=== PATIENT | female | born 1945 | race Caucasian/White ===

== ENCOUNTER 2022-08-07 20:25 | Emergency (ER) | payer MEDICARE ==
[~2022-08-07] VITALS: Ht 162.6 cm; Wt 81.7 kg
[2022-08-07 21:08] LABS: Base Excess Venous 0.2 mmol/L; Bicarbonate Venous 23.5 mmol/L (24.0-30.0); PCO2 Venous 44.3 mmHg (38-42); pH Blood Venous 7.37 (7.34-7.37)
[2022-08-07 21:31] LABS: BASOPHILS ABSOLUTE AUTO 0.05 K/mm3 (0.00-0.23); BASOPHILS PERCENT AUTO 0 % (0-2); EOSINOPHILS ABSOLUTE AUTO 0.17 K/mm3 (0.00-0.68); EOSINOPHILS PERCENT AUTO 1 % (0-6); Hematocrit 43.1 % (33.0-51.0); Hemoglobin 14.7 g/dL (11.5-16.0); IMMATURE GRAN ABSOLUTE AUTO 0.04 K/mm3 (0.00-0.10); IMMATURE GRAN PERCENT AUTO 0 % (0-1); LYMPHOCYTES ABSOLUTE AUTO 3.09 K/mm3 (0.84-5.20); LYMPHOCYTES PERCENT AUTO 26 % (21-46); MONOCYTES ABSOLUTE AUTO 0.88 K/mm3 (0.16-1.47); MONOCYTES PERCENT AUTO 7 % (4-13); Mean Corpuscular HGB 30.8 pg (26.0-34.0); Mean Corpuscular HGB Conc 34.1 g/dL (31.5-36.5); Mean Corpuscular Volume 90 fL (80-100); NEUTROPHILS ABSOLUTE AUTO 7.67 K/mm3 (1.96-9.15); NEUTROPHILS PERCENT AUTO 65 % (41-73); Platelet Count 225 K/mm3 (150-400); RDW Coefficient Variation 12.7 % (11.7-14.2); RDW Standard Deviation 42.1 fL (35.1-46.3); Red Blood Cell Count 4.78 M/mm3 (3.80-5.20)
[2022-08-07 21:37] LABS: Albumin, Blood 3.1 g/dL (3.4-5.0); Albumin/Globulin Ratio 0.8 (0.8-1.8); Bilirubin, Total 0.5 mg/dL (0.1-1.0); Bun/Creatinine Ratio 23.9 (12.0-20.0); Calcium, Blood 9.8 mg/dL (8.5-10.1); Creatinine, Blood 0.63 mg/dL (0.40-1.00); Globulin, Blood 4.1 g/dL (2.2-4.0); Potassium, Blood 3.7 mmol/L (3.5-5.5); Total Protein, Blood 7.2 g/dL (6.4-8.2)
[2022-08-07 21:46] LABS: Source, Urine Clean Catch
[2022-08-07 21:48] LABS: Bilirubin, Urine Neg (Neg); Blood, Urine 3+ (Neg); Glucose Qualitative, Urine 4+ (Neg); Ketones, Urine 3+ (Neg); Leukocyte Esterase, Urine 3+ (Neg); Nitrite, Urine Neg (Neg); Protein, Urine Neg (Neg); Specific Gravity, Urine 1.015 (1.003-1.022); Urobilinogen, Urine NORM (Normal)
[2022-08-07 21:59] LABS: Appearance, Urine Hazy (Clear); Color, Urine Pale Yellow (P-Yellow)
[2022-08-07 22:00] LABS: Bacteria Few /hpf; Red Blood Cells, Urine 0-2 /hpf (0-2); Squamous Epithelial Cells Rare /hpf (Few); Yeast/Fungi Urine Few /hpf
== END 2022-08-08 03:36 | disposition left against medical advice (07) ==
LOC: ER 20:25
PROVIDERS: Student in an Organized Health Care Education/Training Program
DX: E11.65 Type 2 diabetes mellitus with hyperglycemia (principal); L53.9 Erythematous condition, unspecified; F32.A Depression, unspecified; E03.9 Hypothyroidism, unspecified; Z79.4 Long term (current) use of insulin; Z79.01 Long term (current) use of anticoagulants; Z79.890 Hormone replacement therapy; Z53.21 Procedure and treatment not carried out due to patient leaving prior to being seen by health care provider
CPT/HCPCS: 80053; 81001; 82803; 82947; 85025; 87086; 87147; 93005; 93010; 99283-25

== ENCOUNTER → 2022-09-02 | Outpatient (CLI) | payer MEDICARE | END | disposition home or self-care (01) | LOC: LAB SHORT 13:11 → LAB 13:11 | DX: R31.9 Hematuria, unspecified (principal) | CPT/HCPCS: 87086 ==

== ENCOUNTER → 2022-10-27 | Outpatient (CLI) | payer MEDICARE ==
[~2022-10-27] MED LIST: ADMELOG SO100 UNIT/2 SC; AMITRIPTYLINE H25 MG PO; DONEPEZIL HCL5 M2 PO; ELIQUIS5 M3 PO; FLUO10 PO; JARDIANCE25 MG PO; METO25 PO; NYSTOP15 GM TOP; ROSUVASTATIN CA20 MG PO; SPIRONOLACTONE25 MG PO
== END ==
LOC: LAB SHORT 10:40
DX: R30.0 Dysuria (principal)
CPT/HCPCS: 87086; 87147

== ENCOUNTER 2023-06-20 20:31 | Emergency (ER) | payer MEDICARE, OTHER ==
[~2023-06-20] VITALS: Ht 162.6 cm; Wt 86.2 kg
[2023-06-20 20:38] VITALS: BP 133/85
== END 2023-06-20 21:50 ==
LOC: ER 20:31
DX: E11.65 Type 2 diabetes mellitus with hyperglycemia (principal); I48.91 Unspecified atrial fibrillation; Z79.4 Long term (current) use of insulin
CPT/HCPCS: 82947; 99283; J1815

== ENCOUNTER 2023-10-28 14:39 | Emergency (ER) | payer MEDICARE, OTHER ==
[~2023-10-28] VITALS: Ht 165.1 cm; Wt 72.6 kg
[2023-10-28 15:50] LABS: Source, Urine Clean Catch
[2023-10-28 15:57] LABS: Appearance, Urine Clear (Clear); Bilirubin, Urine Neg (Neg); Blood, Urine Neg (Neg); Glucose Qualitative, Urine 4+ (Neg); Ketones, Urine Neg (Neg); Leukocyte Esterase, Urine Neg (Neg); Nitrite, Urine Neg (Neg); Protein, Urine Neg (Neg); Specific Gravity, Urine 1.015 (1.003-1.022); Urobilinogen, Urine NORM (Normal)
[2023-10-28 16:08] LABS: Color, Urine Pale Yellow (P-Yellow)
[2023-10-28 16:17] LABS: BASOPHILS ABSOLUTE AUTO 0.04 K/mm3 (0.00-0.23); BASOPHILS PERCENT AUTO 0 % (0-2); EOSINOPHILS ABSOLUTE AUTO 1.13 K/mm3 (0.00-0.68); EOSINOPHILS PERCENT AUTO 11 % (0-6); Hematocrit 44.2 % (33.0-51.0); Hemoglobin 14.1 g/dL (11.5-16.0); IMMATURE GRAN ABSOLUTE AUTO 0.03 K/mm3 (0.00-0.10); IMMATURE GRAN PERCENT AUTO 0 % (0-1); LYMPHOCYTES ABSOLUTE AUTO 3.26 K/mm3 (0.84-5.20); LYMPHOCYTES PERCENT AUTO 30 % (21-46); MONOCYTES ABSOLUTE AUTO 0.81 K/mm3 (0.16-1.47); MONOCYTES PERCENT AUTO 8 % (4-13); Mean Corpuscular HGB 27.6 pg (26.0-34.0); Mean Corpuscular HGB Conc 31.9 g/dL (31.5-36.5); Mean Corpuscular Volume 87 fL (80-100); Mean Platelet Volume 9.4 fL (9.1-12.4); NEUTROPHILS ABSOLUTE AUTO 5.52 K/mm3 (1.96-9.15); NEUTROPHILS PERCENT AUTO 51 % (41-73); Platelet Count 205 K/mm3 (150-400); RDW Coefficient Variation 14.1 % (11.7-14.2); White Blood Cell Count 10.79 K/mm3 (4.00-11.30)
[2023-10-28 16:39] LABS: Albumin, Blood 3.2 g/dL (3.4-5.0); Albumin/Globulin Ratio 0.8 (0.8-1.8); Bilirubin, Total 0.4 mg/dL (0.1-1.0); Bun/Creatinine Ratio 23.4 (12.0-20.0); Calcium, Blood 9.8 mg/dL (8.5-10.1); Creatinine, Blood 0.47 mg/dL (0.40-1.00); Globulin, Blood 4.1 g/dL (2.2-4.0); Potassium, Blood 4.7 mmol/L (3.5-5.5); Total Protein, Blood 7.3 g/dL (6.4-8.2)
[2023-10-28] MEDS ORDERED: Percocet 5-3251 EACH PO (17:29)
[2023-10-28 18:00] VITALS: BP 141/57
== END 2023-10-28 18:01 | disposition home or self-care (01) ==
LOC: ER 14:39
PROVIDERS: Physician Assistant; Student in an Organized Health Care Education/Training Program
DX: M25.551 Pain in right hip (principal); Z79.899 Other long term (current) drug therapy; Z79.4 Long term (current) use of insulin; E11.9 Type 2 diabetes mellitus without complications; E03.9 Hypothyroidism, unspecified; I48.91 Unspecified atrial fibrillation
CPT/HCPCS: 74177; 80053; 81003; 85025; 99284-25; A9270; Q9967

== ENCOUNTER 2023-12-12 10:21 | Emergency (ER) | payer MEDICARE, OTHER ==
[~2023-12-12] VITALS: Ht 167.6 cm; Wt 83.9 kg
[~2023-12-12 10:21] MED LIST changes: +Percocet 5-3251 EACH PO
[2023-12-12] MEDS ORDERED: DONE5 PO (10:32)
[2023-12-12] MEDS ORDERED: AMIT25 PO (10:32)
[2023-12-12] MEDS ORDERED: Prozac40 MG PO (10:33)
[2023-12-12] MEDS ORDERED: ELIQUIS5 M2 PO (10:33)
[2023-12-12] MEDS ORDERED: METO50 PO (10:34)
[2023-12-12] MEDS ORDERED: Synthroid200 MCG PO (10:34)
[2023-12-12] MEDS ORDERED: SPIR25 PO (10:34)
[2023-12-12] MEDS ORDERED: Crestor20 MG PO (10:34)
[2023-12-12] MEDS ORDERED: TRULICITY1.5 MG/0.1 SQ (10:35)
[2023-12-12 12:28] VITALS: BP 113/59
== END 2023-12-12 12:28 | disposition home or self-care (01) ==
LOC: ER 10:21
DX: U07.1 COVID-19 (principal); M25.562 Pain in left knee; W18.30XA Fall on same level, unspecified, initial encounter; F03.90 Unspecified dementia, unspecified severity, without behavioral disturbance, psychotic disturbance, mood disturbance, and anxiety; E11.9 Type 2 diabetes mellitus without complications; E03.9 Hypothyroidism, unspecified; I48.91 Unspecified atrial fibrillation; Z79.899 Other long term (current) drug therapy; Z79.01 Long term (current) use of anticoagulants; Z79.890 Hormone replacement therapy
CPT/HCPCS: 99284

== ENCOUNTER → 2024-02-02 | Outpatient (CLI) | payer MEDICARE, OTHER ==
[~2024-02-02] MED LIST changes: +AMIT25 PO; +Crestor20 MG PO; +DONE5 PO; +ELIQUIS5 M2 PO; +METO50 PO; +Prozac40 MG PO; +SPIR25 PO; +Synthroid200 MCG PO; +TRULICITY1.5 MG/0.1 SQ
[2024-02-02 12:28] LABS: Alanine Aminotransfer (ALT/SGP 49 U/L (12-78); Albumin, Blood 3.1 g/dL (3.4-5.0); Albumin/Globulin Ratio 0.8 (0.8-1.8); Alk Phos 137 U/L (50-136); Anion Gap 5 mmol/L (3-11); Aspartate Aminotrans (AST/SGOT 32 U/L (12-37); Bilirubin, Total 0.3 mg/dL (0.1-1.0); Blood Urea Nitrogen 9 mg/dL (8-24); Bun/Creatinine Ratio 16.8 (12.0-20.0); CO2, Blood 32 mmol/L (21-32); Calcium, Blood 9.4 mg/dL (8.5-10.1); Chloride, Blood 105 mmol/L (98-108); Creatinine, Blood 0.54 mg/dL (0.40-1.00); Glomerular Filtration Rate 94 (60-); Glucose, Blood 142 mg/dL (70-99); Potassium, Blood 3.9 mmol/L (3.5-5.5); Sodium, Blood 138 mmol/L (136-145); Thyroid Stimulating Hormone <0.005 uIU/mL (0.360-4.800); Total Protein, Blood 7.1 g/dL (6.4-8.2)
== END ==
LOC: LAB SHORT 07:01 → LAB 07:01
PROVIDERS: Internal Medicine Endocrinology, Diabetes & Metabolism
DX: E03.9 Hypothyroidism, unspecified (principal); E11.65 Type 2 diabetes mellitus with hyperglycemia
CPT/HCPCS: 80053; 83036; 84443

== ENCOUNTER → 2024-04-03 | Outpatient (CLI) | payer MEDICARE, OTHER ==
[~2024-04-03] MED LIST changes: +Atarax10 MG PO; +Naprosyn500 MG PO; +Ultram50 MG PO
[2024-04-03 13:40] LABS: Source, Urine Clean Catch
[2024-04-03 15:13] LABS: Appearance, Urine Cloudy (Clear); Bilirubin, Urine Neg (Neg); Blood, Urine 2+ (Neg); Color, Urine Yellow (P-Yellow); Glucose Qualitative, Urine 4+ (Neg); Ketones, Urine Neg (Neg); Leukocyte Esterase, Urine 3+ (Neg); Nitrite, Urine Neg (Neg); Protein, Urine Neg (Neg); Urobilinogen, Urine NORM (Normal)
[2024-04-03 15:28] LABS: Bacteria Mod /hpf; Squamous Epithelial Cells Few /hpf (Few); Transitional Epithelial Cells Few /hpf (0-Rare); White Blood Cells, Urine TNTC /hpf (0-5)
== END ==
LOC: LAB 13:38 → LAB SHORT 13:38
PROVIDERS: Family Medicine
DX: N39.0 Urinary tract infection, site not specified (principal)
CPT/HCPCS: 81001; 87086; 87147

== ENCOUNTER → 2024-04-11 | Outpatient (CLI) | payer MEDICARE, OTHER | END | disposition home or self-care (01) | LOC: LAB 15:31 → LAB SHORT 15:31 | DX: N39.0 Urinary tract infection, site not specified (principal) | CPT/HCPCS: 87086 ==

== ENCOUNTER 2024-05-03 18:34 | Emergency (ER) | payer MEDICARE, OTHER ==
[~2024-05-03] VITALS: Ht 162.6 cm; Wt 89.8 kg
[2024-05-03 18:40] VITALS: BP 118/77
[2024-05-03] MEDS ORDERED: Insulin Lisp Protam 75/Lisp 25 100 Unit/ML 3ML Pen SC ONE (19:20)
== END 2024-05-03 23:00 | disposition home or self-care (01) ==
LOC: ER 18:34
DX: Z76.0 Encounter for issue of repeat prescription (principal); E03.9 Hypothyroidism, unspecified; E11.9 Type 2 diabetes mellitus without complications; I48.91 Unspecified atrial fibrillation; Z79.899 Other long term (current) drug therapy; Z79.4 Long term (current) use of insulin
CPT/HCPCS: 82947; 99282; J1815

== ENCOUNTER 2024-12-02 03:16 | Observation (INO) | payer MEDICARE, OTHER ==
[~2024-12-02] VITALS: Ht 162.6 cm; Wt 98.0 kg
[2024-12-02] MEDS ORDERED: FentaNYL Citrate 50 MCG/ML 2 ML Injection IV ONE (03:25)
[2024-12-02] MEDS ORDERED: Ondansetron HCl 2 MG / ML 2ML Vial IV ONE (03:30)
[2024-12-02 03:35] LABS: BASOPHILS ABSOLUTE AUTO 0.03 K/mm3 (0.00-0.23); BASOPHILS PERCENT AUTO 0 % (0-2); EOSINOPHILS ABSOLUTE AUTO 0.43 K/mm3 (0.00-0.68); EOSINOPHILS PERCENT AUTO 6 % (0-6); Hematocrit 40.4 % (33.0-51.0); IMMATURE GRAN ABSOLUTE AUTO 0.02 K/mm3 (0.00-0.10); IMMATURE GRAN PERCENT AUTO 0 % (0-1); LYMPHOCYTES ABSOLUTE AUTO 2.53 K/mm3 (0.84-5.20); LYMPHOCYTES PERCENT AUTO 32 % (21-46); MONOCYTES ABSOLUTE AUTO 0.77 K/mm3 (0.16-1.47); MONOCYTES PERCENT AUTO 10 % (4-13); Mean Corpuscular HGB 28.4 pg (26.0-34.0); Mean Corpuscular HGB Conc 32.2 g/dL (31.5-36.5); Mean Corpuscular Volume 88 fL (80-100); Mean Platelet Volume 9.4 fL (9.1-12.4); NEUTROPHILS PERCENT AUTO 52 % (41-73); Platelet Count 172 K/mm3 (150-400); RDW Coefficient Variation 14.2 % (11.7-14.2); RDW Standard Deviation 45.6 fL (35.1-46.3); Red Blood Cell Count 4.58 M/mm3 (3.80-5.20); White Blood Cell Count 7.88 K/mm3 (4.00-11.30)
[2024-12-02 03:47] LABS: Source, Urine Clean Catch
[2024-12-02] MEDS ORDERED: INSULIN LI100 UNIT/7 SC ×2 (03:50→18:01)
[2024-12-02] MEDS ORDERED: TRULICITY1.5 MG/0.1 SQ (03:53)
[2024-12-02] MEDS ORDERED: ACET500 PO (03:54)
[2024-12-02] MEDS ORDERED: HYDR1TAB94 PO (03:55)
[2024-12-02] MEDS ORDERED: BISA10S PR (03:55)
[2024-12-02] MEDS ORDERED: DULCOLAX400 MG/5 M PO (03:56)
[2024-12-02] MEDS ORDERED: LOPE2C (03:56)
[2024-12-02 03:59] LABS: Albumin, Blood 2.7 g/dL (3.4-5.0); Albumin/Globulin Ratio 0.7 (0.8-1.8); Bilirubin, Total 0.3 mg/dL (0.1-1.0); Bun/Creatinine Ratio 11.8 (12.0-20.0); Calcium, Blood 9.4 mg/dL (8.5-10.1); Creatinine, Blood 0.68 mg/dL (0.40-1.00); Globulin, Blood 3.7 g/dL (2.2-4.0); Potassium, Blood 3.6 mmol/L (3.5-5.5); Total Protein, Blood 6.4 g/dL (6.4-8.2)
[2024-12-02 04:03] LABS: Bilirubin, Urine Neg (Neg); Blood, Urine Neg (Neg); Glucose Qualitative, Urine 4+ (Neg); Ketones, Urine Neg (Neg); Leukocyte Esterase, Urine 1+ (Neg); Nitrite, Urine Neg (Neg); Protein, Urine Neg (Neg); Urobilinogen, Urine NORM (Normal)
[2024-12-02 04:28] LABS: Appearance, Urine Hazy (Clear); Color, Urine Pale Yellow (P-Yellow)
[2024-12-02 04:29] LABS: Bacteria Mod /hpf; Red Blood Cells, Urine 0-2 /hpf (0-2); Squamous Epithelial Cells Mod /hpf (Few)
[2024-12-02] MEDS ORDERED: NS 1,000 ML IV SCH (06:15)
[2024-12-02] MEDS ORDERED: MetroNIDAZOLE 500MG/NS 100 ml 100 ML IV ONE (06:15)
[2024-12-02] MEDS ORDERED: CefTRIAXone Sodium 1,000 MG in NS 100 ML IV ONE (06:15)
[2024-12-02] MEDS ORDERED: Ondansetron HCl 2 MG / ML 2ML Vial IV PRN (07:40)
[2024-12-02] MEDS ORDERED: FentaNYL Citrate 50 MCG/ML 2 ML Injection IV PRN (07:40)
[2024-12-02] MEDS ORDERED: FLU VACC TS2024-25(6MOS UP)/PF 45 MCG/0.5 ML SYRINGE IM PRN (07:40)
[2024-12-02] MEDS ORDERED: Bisacodyl 10 MG Supp PR PRN (16:25)
[2024-12-02 17:06] VITALS: BP 124/82
--- NOTE | 2024-12-02 17:15 | NUR ---
PT ARRIVED TO 226 FROM ED. PT TRANSFERRED W/SBA FROM [facility] TO BED. BED ALARM ON FOR SAFETY. ORIENTED PT TO USE OF CALL LIGHT. IV FLUIDS INFUSING PER ORDERS. PT RECEIVED PHONE CALL FROM FRIEND. CALL LIGHT IN REACH.
[2024-12-02] MEDS ORDERED: PERIDEX15 ML MM (18:07)
[2024-12-02] MEDS ORDERED: THERA-D2000 UNIT PO (18:07)
[2024-12-02] MEDS ORDERED: LOPERAMIDE212 PO (18:08)
[2024-12-02] MEDS ORDERED: DULCOLAX400 MG/5 M (18:09)
[2024-12-02 19:37] VITALS: BP 115/54
[2024-12-02] MEDS ORDERED: Rosuvastatin Calcium 10 MG Tab PO SCH (21:00)
[2024-12-02] MEDS ORDERED: Donepezil HCl 5 MG Tab PO SCH (21:00)
[2024-12-02] MEDS ORDERED: Amitriptyline HCl 25 MG Tab PO SCH (21:00)
[2024-12-02] MEDS ORDERED: Metoprolol Tartrate 50 MG Tab PO SCH (21:00)
--- NOTE | 2024-12-02 22:11 | NUR ---
CONSULT 2199 - PT USED CALL LIGHT TO REQUEST AID R/T BLEEDING MOUTH. PT STATES "I HAD MOUTH SURGERY THE DAY BEFORE YESTERDAY AND I THINK I POPPED A STITCH." PT VISUALIZED c BRIGHT RED BLOOD AROUND MOUTH/FACE/HANDS/GOWN & BEDDING. A CLOT APPROX QUARTER SIZED WAS VISUALIZED ON THE FLOOR NEXT TO THE PT. PT STATES SHE WAS NOT CHEWING ON ANYTHING AND CANNOT ACCURATELY DESCRIBE WHY THE MOUTH BEGAN TO BLEED. THE BLOOD WAS CLEANED, AND NEW BEDDING/GOWN PLACED. ICE PROVIDED TO THE PT FOR COMFORT. UPPER GUM LINE VISUALIZED c DISKY APPEARANCE AND BLEEDING FROM R UPPER GUM. 2205 - CALL PLACED TO HOSPITALIST. 2210 - DOC MADE AWARE OF SITUATION, ORDERED INR. DR STATED IF BLEEDING PERSISTS TO HAVE DR. URBINA ASSESS THE PT.
[2024-12-02 22:54] LABS: International Normalized Ratio 1.1; Prothrombin Time Results 11.7 Sec (9.7-11.5)
[2024-12-03 02:15] VITALS: BP 131/64
--- NOTE | 2024-12-03 04:07 | NUR ---
SHIFT SUMMARY S/P RUQ PAIN. NO ACUTE CHANGES OVERNIGHT. VSS. NPO. NO N/V. PT REPORTS MIN PAIN TO ABD, STATES MOST PAIN IS LOCALIZED TO BACK OVERNIGHT, MEDICATED PER EMAR. PT RESPONDS TO QUESTIONS APPROPRIATELY, FOLLOWS COMMANDS, REQUIRES REORIENTATION TO USE OF CALL LIGHT. VOIDING, ATTENDS IN USE. ABLE TO STAND/PIVOT c FWW. POSSIBLE SURG LATER TODAY. CALL LIGHT IN REACH, BED IN LOWEST POSITION, WILL REPORT TO DAY RN.
[2024-12-03 05:26] LABS: BASOPHILS ABSOLUTE AUTO 0.04 K/mm3 (0.00-0.23); BASOPHILS PERCENT AUTO 1 % (0-2); EOSINOPHILS ABSOLUTE AUTO 0.38 K/mm3 (0.00-0.68); EOSINOPHILS PERCENT AUTO 5 % (0-6); Hematocrit 41.2 % (33.0-51.0); Hemoglobin 13.2 g/dL (11.5-16.0); IMMATURE GRAN ABSOLUTE AUTO 0.03 K/mm3 (0.00-0.10); IMMATURE GRAN PERCENT AUTO 0 % (0-1); LYMPHOCYTES ABSOLUTE AUTO 1.82 K/mm3 (0.84-5.20); LYMPHOCYTES PERCENT AUTO 23 % (21-46); MONOCYTES ABSOLUTE AUTO 0.67 K/mm3 (0.16-1.47); MONOCYTES PERCENT AUTO 9 % (4-13); Mean Corpuscular HGB 28.2 pg (26.0-34.0); Mean Corpuscular Volume 88 fL (80-100); Mean Platelet Volume 9.4 fL (9.1-12.4); NEUTROPHILS ABSOLUTE AUTO 4.84 K/mm3 (1.96-9.15); NEUTROPHILS PERCENT AUTO 62 % (41-73); Platelet Count 171 K/mm3 (150-400); RDW Coefficient Variation 14.2 % (11.7-14.2); RDW Standard Deviation 45.7 fL (35.1-46.3); Red Blood Cell Count 4.68 M/mm3 (3.80-5.20); White Blood Cell Count 7.78 K/mm3 (4.00-11.30)
[2024-12-03 05:44] LABS: Bun/Creatinine Ratio 16.1 (12.0-20.0); Calcium, Blood 9.3 mg/dL (8.5-10.1); Creatinine, Blood 0.56 mg/dL (0.40-1.00); Potassium, Blood 4.3 mmol/L (3.5-5.5)
--- NOTE | 2024-12-03 05:57 | NUR ---
CLUB STEWARD IN ATTENDANCE OF PT TO ASSIST FOR BSC AND WHEN PT BETO UP, SHE BEGAN BLEEDING FROM HER MOUTH.PT REPORTS SHE HAD "ALL" OF HER TEETH PULLED A COUPLE DAYS AGO AND HAD EARLIER BLEED WHICH WHICH RESOLVED.I CALLED DR URBINA TO BEDSIDE.WE REVIEWED PT HX AND LABS.DR URBINA CURRENTLY AT BEDSIDE.PT HAS BITE SHERONE.DR URBINA ORDERED H/H FOR 0900.
[2024-12-03 06:00] VITALS: BP 128/65
[2024-12-03] MEDS ORDERED: Levothyroxine Sodium 0.125 MG Tab PO SCH (06:00)
--- NOTE | 2024-12-03 06:07 | NUR ---
BLEEDING PT BEGAN SUDDENLY BLEEDING FROM UPPER GUMS. BRIGHT RED OUTPUT. PT ABLE TO PUT PRESSURE ON GUMS c GAUZE. ICE THEN PLACED ON TOP FOR COMFORT. DR URBINA TO BEDSIDE TO ASSESS PT. STATES HE VISUALIZED THE SITE IS "BEGINNING TO CLOT OFF." DR ORDERED REPEAT H&H FOR 0900. STATED IF BLEEDING PERSISTS TO CONSULT ENT/SURG FOR POSSIBLE REPLACEMENT SUTURES IN UPPER GUM.
--- NOTE | 2024-12-03 06:18 | NUR ---
DR CONSULT DR UNDERWOOD NOTIFIED OF PT ORAL BLEEDING. DR AWARE OF PT RECENT ORAL SURGERY. DR REQUESTS DENTAL HYGIENEST TO ASSESS PT MOUTH. DR STATES SHE WILL ASSESS PT ORAL CAVITY c UPPER/LOWER ENDOSCOPY LATER TODAY. STATES TO PLACE 4x4 GAUZE c ICE TO AFFECTED AREA.
[2024-12-03] MEDS ORDERED: Insulin Regular 100 UNIT/ML 10ML Vial SC SCH (07:30)
[2024-12-03 07:36] VITALS: BP 141/66
[2024-12-03] MEDS ORDERED: FLUoxetine HCL 20 MG CAP PO SCH (09:00)
[2024-12-03] MEDS ORDERED: Spironolactone 12.5 MG TAB PO SCH (09:00)
--- NOTE | 2024-12-03 10:05 | NUR ---
PT TO DAY SURGERY FOR SCOPE
[2024-12-03] MEDS ORDERED: Lactated Ringer's 1,000 ML IV SCH (10:10)
[2024-12-03 10:11] LABS: Hematocrit 40.2 % (33.0-51.0); Hemoglobin 13.1 g/dL (11.5-16.0)
[2024-12-03 10:14] VITALS: BP 107/70
[2024-12-03] MEDS ORDERED: propofoL 40 ML IV ONE (10:16)
--- NOTE | 2024-12-03 10:25 | NUR ---
12/03/24 1025 Stella Quintero MAC WITH DAVE FREEDMAN; SEE ANESTHESIA RECORDS.
[2024-12-03 11:04] VITALS: BP 123/57
--- NOTE | 2024-12-03 11:08 | NUR ---
PT BACK TO ROOM FROM DAY SURGERY. PT IS ALERT AND RESPONSIVE, VSS, NO PAIN OR NAUSEA. EATING PUDDING AND DRINKING SOME WATER. CALL LIGHT IN REACH, BED ALARM ON FOR SAFETY.
[2024-12-03 14:44] VITALS: BP 128/68
--- NOTE | 2024-12-03 15:03 | NUR ---
DISCHARGE NOTE Pt is alert, responsive, following commands. Pt is tolerating soft bite diet w/o complaints of pain and nausea but has had multiple inc loose stools since scope. Dr. Garcia aware, clarified ok for pt to still discharge. Discharge instructions reviewed w/ pt, copy given. Vss. Report to Daly at [facility] at 1505, instructed pt and Daly that Eliquis is not to be restarted until 12/07/24. Pt discharged via [facility] medical transport in stable condition w/ all belongings in hand.
== END 2024-12-03 15:05 | disposition home or self-care (01) ==
LOC: ER 03:16 → ERHOLD 03:17 → SURS 03:17
PROVIDERS: Emergency Medicine; Internal Medicine; Student in an Organized Health Care Education/Training Program; Surgery; ADMIT Family Medicine
PROC: 0DB68ZX Excision of Stomach, Via Natural or Artificial Opening Endoscopic, Diagnostic (ICD-10-PCS; principal; 2024-12-03 16:45)
DX: R10.13 Epigastric pain (principal); K80.20 Calculus of gallbladder without cholecystitis without obstruction; E11.9 Type 2 diabetes mellitus without complications; E03.9 Hypothyroidism, unspecified; I48.0 Paroxysmal atrial fibrillation; F03.90 Unspecified dementia, unspecified severity, without behavioral disturbance, psychotic disturbance, mood disturbance, and anxiety; F32.A Depression, unspecified; Z79.01 Long term (current) use of anticoagulants; Z79.4 Long term (current) use of insulin; Z79.890 Hormone replacement therapy; Z79.85 Long-term (current) use of injectable non-insulin antidiabetic drugs; Z79.899 Other long term (current) drug therapy; Z90.710 Acquired absence of both cervix and uterus
CPT/HCPCS: 36415; 74181; 76705; 80048; 80053; 81001; 82947; 83690; 84484; 85014; 85018; 85025; 85610; 93005; 93010; 93306; 96365; 96367; 96375; 96376; 99285-25; A9270; G0378; J0696; J2405; J2704; J3010; J7030; J7120

== ENCOUNTER → 2025-01-19 | Outpatient (CLI) | payer MEDICARE, OTHER ==
[~2025-01-19] MED LIST changes: +ACET500 PO; +BISA10S PR; +DULCOLAX400 MG/5 M; +DULCOLAX400 MG/5 M PO; +HYDR1TAB94 PO; +INSULIN LI100 UNIT/7 SC; +LOPE2C; +LOPERAMIDE212 PO; +PERIDEX15 ML MM; +THERA-D2000 UNIT PO
[2025-01-19 17:08] LABS: Appearance, Urine Clear (Clear); Bilirubin, Urine Neg (Neg); Blood, Urine Neg (Neg); Glucose Qualitative, Urine 4+ (Neg); Ketones, Urine Neg (Neg); Leukocyte Esterase, Urine Neg (Neg); Nitrite, Urine Neg (Neg); Protein, Urine Neg (Neg); Urobilinogen, Urine NORM (Normal)
[2025-01-19 17:11] LABS: Color, Urine Pale Yellow (P-Yellow)
== END ==
LOC: LAB 14:55 → LAB SHORT 14:55
PROVIDERS: Family Medicine
DX: N39.0 Urinary tract infection, site not specified (principal)
CPT/HCPCS: 81003